=== PATIENT | female | born 1925 | race Caucasian/White ===

== ENCOUNTER 2016-06-11 15:01 | Emergency (ER) | payer OTHER ==
[~2016-06-11] VITALS: Ht 152.4 cm; Wt 63.5 kg
[2016-06-11] MEDS ORDERED: ACET-2605 PO (15:40)
[2016-06-11] MEDS ORDERED: ALEN70TA45 PO (15:40)
[2016-06-11] MEDS ORDERED: CALC-7 PO (15:40)
[2016-06-11] MEDS ORDERED: AMLO2.5T PO (15:40)
[2016-06-11] MEDS ORDERED: ASPI81TA2 PO (15:40)
[2016-06-11] MEDS ORDERED: FLUO-119 PO (15:40)
[2016-06-11] MEDS ORDERED: MULT-659 PO (15:40)
[2016-06-11] MEDS ORDERED: SENN8.6T6 PO (15:40)
[2016-06-11] MEDS ORDERED: [UNRECOGNIZED DRUG - CODE] PO (15:40)
[2016-06-11] MEDS ORDERED: DONE5TAB34 PO (15:40)
[2016-06-11 17:55] VITALS: BP 128/87
== END 2016-06-11 17:56 | disposition home or self-care (01) ==
LOC: ER 15:05
DX: S01.311A Laceration without foreign body of right ear, initial encounter (principal); F03.90 Unspecified dementia, unspecified severity, without behavioral disturbance, psychotic disturbance, mood disturbance, and anxiety; I10 Essential (primary) hypertension; F32.9 Major depressive disorder, single episode, unspecified; M81.0 Age-related osteoporosis without current pathological fracture; Z88.2 Allergy status to sulfonamides; Z88.8 Allergy status to other drugs, medicaments and biological substances; Z79.82 Long term (current) use of aspirin; W22.8XXA Striking against or struck by other objects, initial encounter; Y93.89 Activity, other specified; Y92.89 Other specified places as the place of occurrence of the external cause; Y99.8 Other external cause status
CPT/HCPCS: 12011; 99283; A4606; Z7610